=== PATIENT | male | born 1985 | race Caucasian/White ===

== ENCOUNTER 2016-09-29 09:13 | Emergency (ER) | payer BC ==
[2016-09-29] MEDS ORDERED: IBUPROFEN 600 MG TABLET PO ONE (09:27)
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
[2016-09-29] MEDS ORDERED: ORPHENADRINE CITRATE 60MG/2ML VIAL IM ONE (11:18)
[2016-09-29] MEDS ORDERED: KETOROLAC 30 MG/ML VIAL IM ONE (11:18)
[2016-09-29] MEDS ORDERED: MORPHINE SULFATE 5 MG/ML PFS IM ONE (11:21)
== END 2016-09-29 12:07 | disposition home or self-care (01) ==
LOC: ER 09:13
DX: S16.1XXA Strain of muscle, fascia and tendon at neck level, initial encounter (principal); V43.53XA Car driver injured in collision with pick-up truck in traffic accident, initial encounter; Y92.410 Unspecified street and highway as the place of occurrence of the external cause
CPT/HCPCS: 72052; 96372; 99283; 99284; J2360